=== PATIENT | male | born 1990 | race Caucasian/White ===

== ENCOUNTER 2022-03-25 11:25 | Emergency (ER) | payer MEDICAID ==
[~2022-03-25] VITALS: Ht 160 cm; Wt 136.1 kg
[2022-03-25 12:07] VITALS: BP_SYST 129
--- NOTE | 2022-03-25 12:07 | NUR ---
Patient to ER bed TENT1 to gown for evaluation. Side rails up.
--- NOTE | 2022-03-25 12:10 | NUR ---
PT SENT OVER FROM [facility] FOR REDDENED + APPEARING TB TEST TO ARM. PT IS AMBULATORY, AAOX4, VSS
--- NOTE | 2022-03-25 12:57 | NUR ---
PORTABLE XRAY AT THE BEDSIDE
[2022-03-25] MEDS ORDERED: CEPH-548 PO (13:21)
[2022-03-25] MEDS ORDERED: [UNRECOGNIZED DRUG - CODE] PO (13:21)
[2022-03-25 13:56] VITALS: BP_SYST 129
--- NOTE | 2022-03-25 14:02 | NUR ---
Patient given written and verbal discharge instructions and verbalizes understanding. ER MD discussed with patient the results and treatment provided. Patient in stable condition. ID arm band removed. Rx of CEPHALEXIN AND ISONIAZID given. Patient educated on pain management and to follow up with PMD. Pain Scale 0/10. Opportunity for questions provided and answered. Medication side effect fact sheet provided.
== END 2022-03-25 13:56 | disposition home or self-care (01) ==
LOC: SED 11:25
DX: A18.4 Tuberculosis of skin and subcutaneous tissue (principal); R21 Rash and other nonspecific skin eruption; Z22.7 Latent tuberculosis; Z79.899 Other long term (current) drug therapy
CPT/HCPCS: 71045; 99283